=== PATIENT | female | born 1990 | race Caucasian/White ===

== ENCOUNTER 2016-07-21 20:42 | Emergency (ER) | payer OTHER ==
[2016-07-21 20:48] VITALS: BP 140/84; PULSE 85; TEMP 98.1; BMI 25.4
--- NOTE | 2016-07-21 20:58 | PDOC ---
History of Present Illness - General History Source: Patient <Chiki Crowell - Last Filed: 07/21/16 20:54> - General History Source: Patient Exam Limitations: No Limitations - History of Present Illness Initial Comments: 07/21/16 20:58 The patient is a 26 year old female, with no significant past medical history, who presents to the emergency department with left foot pain. She states that a 20 pound weight fell on her foot earlier today while at the gym. She notes that she was able to ambulate immediately afterwards and applied ice to the area for roughly 4 hours. She states that after the icing, she attempted to ambulate and her pain had exacerbated, but has been ambulating since. She reports that the pain is moderate in severity, with radiation to her ankle. She notes that walking exacerbates the pain but is able to ambulate on the foot. Allergies: None Past surgical history: None reported Social history: No alcohol, tobacco or drug use reported <Anshul Tavares - Last Filed: 07/21/16 20:59> - General Chief Complaint: Injury Stated Complaint: LT FOOT PAIN Past History - Past Medical History Other medical history: DENIES - Psycho/Social/Smoking Cessation Hx Anxiety: No Suicidal Ideation: No Smoking History: Never smoked <Chiki Crowell - Last Filed: 07/21/16 20:54> <Anshul Tavares - Last Filed: 07/21/16 20:59> - Past Medical History Allergies/Adverse Reactions: Allergies Allergy/AdvReac Type Severity Reaction Status Date / Time No Known Allergies Allergy Unverified 07/21/16 20:46 Home Medications: Ambulatory Orders NK [No Known Home Medication] 07/21/16 Review of Systems - Review of Systems Able to Perform ROS?: Yes Is the patient limited Persian proficient: No Constitutional: No: Symptoms Reported Musculoskeletal: Yes: Symptoms Reported, See HPI Integumentary: Yes: Symptoms Reported, See HPI Neurological: No: Symptoms reported All Other Systems: Reviewed and Negative <KeciabetyErniegermanChiki - Last Filed: 07/21/16 20:54> - Review of Systems Able to Perform ROS?: Yes <Anshul Tavares - Last Filed: 07/21/16 20:59> *Physical Exam - Vital Signs Last Vital Signs Temp Pulse Resp BP Pulse Ox 98.1 F 85 18 140/84 100 07/21/16 20:46 07/21/16 20:46 07/21/16 20:46 07/21/16 20:46 07/21/16 20:46 - Physical Exam General Appearance: Yes: Nourished, Appropriately Dressed. No: Apparent Distress HEENT: positive: EOMI Neck: positive: Supple Respiratory/Chest: negative: Respiratory Distress Extremity: positive: Normal Capillary Refill, Normal Inspection, Normal Range of Motion. negative: Tender Integumentary: positive: Normal Color, Bruising (LT FOOT) <Chiki Crowell - Last Filed: 07/21/16 20:54> - Vital Signs Last Vital Signs Temp Pulse Resp BP Pulse Ox 98.1 F 85 18 140/84 100 07/21/16 20:46 07/21/16 20:46 07/21/16 20:46 07/21/16 20:46 07/21/16 20:46 <Anshul Tavares - Last Filed: 07/21/16 20:59> Progress Note - Progress Note Progress Note: NO BONY TENDERNESS. FROM NO NEED FOR XRAYS AT THIS POINT <Chiki Crowell - Last Filed: 07/21/16 20:54> *DC/Admit/Observation/Transfer <Chiki Crowell - Last Filed: 07/21/16 20:54> - Attestations Scribe Attestion: 07/21/16 20:58 Documentation prepared by Anshul Tavares, acting as medical billing clerk for Chiki Crowell MD. <Anshul Tavares - Last Filed: 07/21/16 20:59> Diagnosis at time of Disposition: Foot injury Qualifiers: Encounter type: initial encounter Laterality: left Qualified Code(s): S99.922A - Unspecified injury of left foot, initial encounter - Discharge Dispostion Disposition: HOME Condition at time of disposition: Stable - Patient Instructions Additional Instructions: LEG ELEVATION, ICE. NOT WEIGHT BEARING FOR 12 HOURS RANGE OF MOTION INSTRUCTED IBUPROFEN 400 MG 4 TIMES A DAY FOR 3 DAYS RETURN FOR SEVERE PAIN, SWELLING FOLLOW UP WITH YOUR DOCTOR
== END 2016-07-21 21:02 | disposition home or self-care (01) ==
LOC: FER 20:42
DX: S99.922A Unspecified injury of left foot, initial encounter (principal); W20.8XXA Other cause of strike by thrown, projected or falling object, initial encounter; Y93.89 Activity, other specified; Y92.39 Other specified sports and athletic area as the place of occurrence of the external cause
CPT/HCPCS: 99282-25

== ENCOUNTER 2019-06-30 05:17 | Inpatient (IN) | payer OTHER ==
[2019-06-30] MEDS ORDERED: BUTORPHANOL TARTRATE 1 MG/ML VIAL IVPB ONE (06:34)
[2019-06-30] MEDS ORDERED: PROMETHAZINE HCL 25 MG/1 ML VIAL IVPUSH ONE (06:34)
--- NOTE | 2019-06-30 06:34 | HP ---
Past Medical History - Primary Care Physician PCP:: Pennie Campbell - Admission Chief Complaint: Labor History of Present Illness: 29 yo G 2 P1 EDC EGA 38.5 wk c/o active labor History Source: Patient Limitations to Obtaining History: No Limitations - Past Medical History ...: 3 ...Para: 1 ...Term: 1 ...: 0 ...Spon : 0 ...Induced : 1 ...LMP: 10/06/18 ... Weeks Gestation by Dates: 38.1 ...EDC by Dates: 07/13/19 ...EDC by Sono: 07/09/19 - Past Surgical History Past Surgical History: Yes: None Hx Myomectomy: No Hx Transabdominal Cerclage: No - Smoking History Smoking history: Never smoked - Alcohol/Substance Use Hx Alcohol Use: No History of Substance Use: reports: None - Social History Usual Living Arrangement: Yes: With Spouse History of Recent Travel: Yes Home Medications - Allergies Allergies/Adverse Reactions: Allergies Allergy/AdvReac Type Severity Reaction Status Date / Time No Known Allergies Allergy Verified 06/30/19 06:13 - Home Medications Home Medications: Ambulatory Orders Ibuprofen [Motrin -] 600 mg PO QID #28 tablet 06/30/19 Pnv No.95/Ferrous Fum/Folic AC [ Vitamin Tablet] 1 tab PO DAILY Review of Systems - Review of Systems Constitutional: reports: No Symptoms Eyes: reports: No Symptoms HENT: reports: No Symptoms Neck: reports: No Symptoms Cardiovascular: reports: No Symptoms Respiratory: reports: No Symptoms Gastrointestinal: reports: No Symptoms Genitourinary: reports: No Symptoms Breasts: reports: No Symptoms Reported Musculoskeletal: reports: No Symptoms Integumentary: reports: No Symptoms Neurological: reports: No Symptoms Endocrine: reports: No Symptoms Hematology/Lymphatic: reports: No Symptoms Psychiatric: reports: No Symptoms Physical Exam - Maternity Constitutional: Yes: Well Nourished, No Distress Neck: Yes: WNL - Abdominal Exam/OB Fundal Height: 38 Number of Fetuses: Single Presentation: Vertex Contractions: Yes Monitor Mode: External Category: I - Vaginal Exam/OB Vaginal Bleediing: No Presentation: Vertex/Position - Physical Exam Musculoskeletal: Yes: WNL Extremities: Yes: WNL Hemorrhage Risk Assessment - Risk Factors Risk Score: 0 Risk Level: Low Risk Problem List - Problems (1) Labor established Problems reviewed: Yes Code(s): EGR5360 - Assessment/Plan Labor established ALpha Thalsemia carrier' FOB neg IUp at 38.5 weeks Plan Admit anitcipate vaginal delivery
[2019-06-30] MEDS ORDERED: AMPICILLIN - 2 GM in SODIUM CHLORIDE 100 ML IVPB ONE (06:42)
[2019-06-30] MEDS ORDERED: ELECTROLYTE-148 SOLN 1,000 ML IV SCH (06:45)
[2019-06-30] MEDS ORDERED: AMPICILLIN SODIUM 2 GM VIAL ONE (06:48)
[2019-06-30 06:59] VITALS: BMI 26.5
[2019-06-30 07:10] LABS: BASO % 0.4 % (0-2.0); EOS % 0.7 % (0-4.5); HEMATOCRIT 33.2 % (32.4-45.2); HEMOGLOBIN 11.3 GM/dL (10.7-15.3); MCH 25.6 pg (25.7-33.7); MEAN CELL VOLUME 75.3 fl (80-96); MONO % 6.9 % (3.8-10.2); PLATELET COUNT 229 K/MM3 (134-434); RDW 15.2 % (11.6-15.6); WHITE BLOOD COUNT 9.5 K/mm3 (4.0-10.0)
[2019-06-30] MEDS ORDERED: BUTORPHANOL TARTRATE 1 MG/ML VIAL ONE ×2 (07:29)
[2019-06-30] MEDS ORDERED: LIDOCAINE HCL 1% PRESERVATIVE FREE - 30ML VIAL ONE (07:30)
[2019-06-30] MEDS ORDERED: OXYTOCIN 20 UNITS in 0.9% NS 20 UNIT/1,000 ML INFUS.BAG IV ONE (07:30)
[2019-06-30] MEDS ORDERED: PROMETHAZINE HCL 25 MG/1 ML VIAL ONE (07:30)
[2019-06-30 07:38] LABS: BLOOD UREA NITROGEN 7.3 mg/dL (7-18); CALCIUM 8.4 mg/dL (8.5-10.1); CREATININE 0.4 mg/dL (0.55-1.3); POTASSIUM 3.5 mmol/L (3.5-5.1)
--- NOTE | 2019-06-30 07:40 | PN ---
Ante-Partal Exam - Subjective Subjective: Pt with co abd pain desires IV meds Vital Signs: Vital Signs Temperature 98.3 F 06/30/19 07:00 Pulse Rate 83 06/30/19 07:00 Respiratory Rate 20 06/30/19 07:00 Blood Pressure 119/67 06/30/19 07:00 O2 Sat by Pulse Oximetry (%) Bleeding: No Headache: No Visual changes: No Right upper quadrant pain: No - Contractions Contractions: Yes Regularity: Regular Intensity: Moderate Monitor Mode: External - Exam during Labor Variability: Moderate Heart Rate Location: [facility] Category: I Monitor Accelerations: Present Monitor Decelerations: None Exam: Vaginal Dilatation (cm): 8 Effacement (%): 100 Amniotic Membrane Status: Intact Presentation: Vertex Station: +1 - Intrapartum Hemorrhage Risk Risk Score: 0 Risk Level: Low Risk - Assessment/Plan Assessment/Plan: Active Labor 38.5 week Cat 1 GBS unknown Plan GBS protocol IV Stadol anticipate vaginal delivery
[2019-06-30 07:41] LABS: INR 0.9 (0.83-1.09); PROTHROMBIN TIME (PATIENT) 10.6 SEC (9.7-13.0)
[2019-06-30 07:44] LABS: ACTIVATED PTT 27.3 SECONDS (25.2-36.5)
[2019-06-30] MEDS: ACETAMINOPHEN 325 MG TABLET (FP) PO PRN ×4 (09:00→20:35)
[2019-06-30] MEDS: IBUPROFEN 600 MG TABLET (FP) PO PRN ×3 (10:00→20:34)
[2019-06-30] MEDS ORDERED: ACETAMINOPHEN 325 MG TABLET (FP) ONE (10:03)
[2019-06-30] MEDS ORDERED: IBUPROFEN 600 MG TABLET (FP) PO ONE (10:03)
[2019-06-30] MEDS ORDERED: BISACODYL 10 MG SUPP.RECT RC PRN (10:09)
[2019-06-30] MEDS ORDERED: WITCH HAZEL 50% (TUCKS) 40 PAD/JAR PAD TP PRN (10:09)
[2019-06-30] MEDS ORDERED: BENZOCAINE 20% 57 GM BOTTLE TP PRN (10:09)
[2019-06-30] MEDS ORDERED: BENZOCAINE 28 GM HEMORRHOIDAL OINTMENT PR PRN (10:09)
[2019-06-30] MEDS ORDERED: METHYLERGONOVINE MALEATE 0.2 MG/1 ML AMP IM PRN (10:09)
--- NOTE | 2019-06-30 10:11 | PN ---
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
[2019-06-30] MEDS ORDERED: AMPICILLIN - 1 GM in SODIUM CHLORIDE 100 ML IVPB SCH (10:43)
[2019-06-30] MEDS ORDERED: OXYTOCIN 20 UNITS in 0.9% NS 20 UNIT/1,000 ML INFUS.BAG IV SCH (12:00)
[2019-07-01] MEDS: ACETAMINOPHEN 325 MG TABLET (FP) PO PRN ×3 (02:21→21:12)
[2019-07-01] MEDS: IBUPROFEN 600 MG TABLET (FP) PO PRN ×3 (02:21→21:12)
[2019-07-01 06:06] LABS: RUBELLA ANTIBODY,IGM <20.0 AU/mL (0.0-19.9)
[2019-07-01 08:40] LABS: BASO % 0.6 % (0-2.0); EOS % 0.4 % (0-4.5); HEMATOCRIT 28.9 % (32.4-45.2); HEMOGLOBIN 9.6 GM/dL (10.7-15.3); LYMPH % 31.9 % (8-40); MCH 25.6 pg (25.7-33.7); MCHC 33.2 g/dl (32.0-36.0); MEAN CELL VOLUME 76.9 fl (80-96); MONO % 7.3 % (3.8-10.2); NEUT % 59.8 % (42.8-82.8); PLATELET COUNT 220 K/MM3 (134-434); RBC 3.76 M/mm3 (3.60-5.2); RDW 15.1 % (11.6-15.6); WHITE BLOOD COUNT 11.5 K/mm3 (4.0-10.0)
[2019-07-01 20:32] LABS: BASO % 0.5 % (0-2.0); EOS % 0.7 % (0-4.5); HEMATOCRIT 29.5 % (32.4-45.2); HEMOGLOBIN 9.6 GM/dL (10.7-15.3); LYMPH % 37.3 % (8-40); MCH 25.5 pg (25.7-33.7); MCHC 32.6 g/dl (32.0-36.0); MEAN CELL VOLUME 78.1 fl (80-96); MEAN PLT VOLUME 9.7 fl (7.5-11.1); MONO % 5.6 % (3.8-10.2); NEUT % 55.9 % (42.8-82.8); PLATELET COUNT 233 K/MM3 (134-434); RBC 3.78 M/mm3 (3.60-5.2); RDW 15.6 % (11.6-15.6); WHITE BLOOD COUNT 9.3 K/mm3 (4.0-10.0)
--- NOTE | 2019-07-01 23:22 | PN ---
Post Note - Post Date of Delivery: 06/30/19 Post Day: 1 Vital Signs: Vital Signs - 24 hr 07/01/19 07/01/19 07/01/19 05:00 08:31 22:00 Temperature 97.9 F 97.7 F 98.2 F Pulse Rate 75 76 81 Respiratory 20 18 20 Rate Blood Pressure 115/66 111/71 116/72 Labs: Laboratory Results - last 24 hr 06/30/19 07/01/19 07/01/19 06:45 07:58 19:30 WBC 11.5 H 9.3 RBC 3.76 3.78 Hgb 9.6 L 9.6 L Hct 28.9 L 29.5 L MCV 76.9 L 78.1 L MCH 25.6 L 25.5 L MCHC 33.2 32.6 RDW 15.1 15.6 Plt Count 220 233 MPV 9.0 9.7 Absolute Neuts (auto) 6.9 5.2 Neutrophils % 59.8 55.9 Lymphocytes % 31.9 37.3 Monocytes % 7.3 5.6 Eosinophils % 0.4 0.7 Basophils % 0.6 0.5 Nucleated RBC % 0 0 Hep Bs Antigen Negative Rubella IgM Antibody <20.0 - Subjective Subjective: No Complaints - Objective Afebrile: Yes Breast: Not engorged Abdomen: Soft, Non-tender Uterus: Fundus firm Vagina: Scant lochia Extremities: Non-tender - Assessment/Plan (1) Labor established Assessment: S/P Normal , Other (anemia) Plan: Routine Care
--- NOTE | 2019-07-02 06:56 | DS ---
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 Vital Signs: Vital Signs Temperature 98.2 F 07/01/19 22:00 Pulse Rate 81 07/01/19 22:00 Respiratory Rate 20 07/01/19 22:00 Blood Pressure 116/72 07/01/19 22:00 O2 Sat by Pulse Oximetry (%) 99 06/30/19 10:30 Constitutional: Yes: Well Nourished, No Distress Gastrointestinal: Yes: WNL, Soft ....Post : Yes: Uterus firm, Uterus non-tender Breast(s): Yes: WNL Musculoskeletal: Yes: WNL Extremities: Yes: WNL Labs: CBC, BMP 07/01/19 19:30 06/30/19 06:45 Delivery - Delivery Vaginal Delivery: No Problems Type of Anesthesia: Local Episiotomy/Laceration: Right Mediolateral EBL (cc): 500 (pt with hemorraghe methergine given) Delivery, Single - Stages of Labor Date 1st Stage Initiatied: 06/30/19 Time 1st Stage Initiated: 03:30 Date 2nd Stage Initiated: 06/30/19 Time 2nd Stage Initiated: 09:00 Date of Delivery: 06/30/19 Time of Delivery: 09:17 Time Placenta Delivered: 09:20 Placenta: Yes: Spontaneous - Condition of 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 Infant Gender: Female Weight: 6 lb 11 oz Position: OA Total Hours ROM (Hrs/Mins): 10min - 1 Minute Total Score: 9 5 Minutes Total Score: 9 - [place] Feeding Plan Initial Plan: Elected not to breastfeed exclusively throughout hospitalization Discharge Summary Problems reviewed: Yes Reason For Visit: LABOR Current Active Problems Labor established (Acute) Procedures: Principal: Normal vaginal delivery Hospital Course: Unremarkable Condition: Good - Instructions Diet, Activity, Other Instructions: Physical activity Resume your normal everyday activity as tolerated no heavy lifting or exercise until seen by your surgeon. You may walk unlimited rachele of and climb stairs. You may resume driving the car when you feel safe and comfortable behind the wheel. No sexual activity as instructed. Wound care If you have a bandage, leave it on, and keep dry for 48-72 hours. After that time discard the outer bandage. If they are tapes on the skin under the out of bandage leave them in place. They will peel off in the next 7 to 10 days. Do Not Peel them off. You may shower the day after surgery. If there are tapes present on the skin, you may shower over them. Diet There are no dietary restrictions. Eat healthy, high-fiber foods. Drink 6 to 8 glasses of liquid each day. This will assist in keeping your bowels are regular. Pain management You may take Tylenol or acetaminophen or Ibuprofen (for example, Motrin, Advil etc.) from my pain prescription medication is ordered should be taken as prescribed for moderate to severe pain. Call MD for any of the following: Severe pain not relieved by medication Fever of 101 or higher Excessive bleeding or drainage on dressing Inability to urinate Referrals: Pennie Campbell MD [Staff Physician] - Disposition: HOME - Home Medications Comprehensive Discharge Medication List: Ambulatory Orders Ibuprofen [Motrin -] 600 mg PO QID #28 tablet 06/30/19 Pnv No.95/Ferrous Fum/Folic AC [ Vitamin Tablet] 1 tab PO DAILY
[2019-07-02] MEDS: IBUPROFEN 600 MG TABLET (FP) PO PRN (09:01)
[2019-07-02] MEDS: ACETAMINOPHEN 325 MG TABLET (FP) PO PRN (09:01)
[2019-07-02 09:07] VITALS: BP 112/74; PULSE 80; TEMP 98.5
== END 2019-07-02 15:55 | disposition home or self-care (01) | DRG 560 ==
LOC: JDEL 05:17 → JLDR 06:30 → J3W 12:01
PROVIDERS: ADMIT Obstetrics & Gynecology; ATTEND Obstetrics & Gynecology
PROC: 10E0XZZ Delivery of Products of Conception, External Approach (ICD-10-PCS; principal; 2019-06-30)
PROC: 0W8NXZZ Division of Female Perineum, External Approach (ICD-10-PCS; 2019-06-30)
DX: O99.02 Anemia complicating childbirth (principal); O72.1 Other immediate postpartum hemorrhage; Z3A.38 38 weeks gestation of pregnancy; Z37.0 Single live birth
CPT/HCPCS: 36415; 36600; 59025; 59409; 80048; 82803; 85025; 85610; 85730; 86593; 86762; 86850; 86900; 86901; 87340

== ENCOUNTER 2019-07-22 20:30 | Emergency (ER) | payer OTHER ==
[2019-07-22 20:40] VITALS: BP 119/78; PULSE 82; TEMP 98.1; BMI 24.2
[2019-07-22] MEDS ORDERED: AMOXICILLIN 250 MG CAPSULE PO ONE (21:12)
[2019-07-22] MEDS ORDERED: AMOXICILLIN 250 MG CAPSULE ONE (21:19)
--- NOTE | 2019-07-22 23:04 | PDOC ---
Documentation entered by Florecita Brunson SCRIBE, acting as scribe for Nkechi Goodwin MD. Nkechi Goodwin MD: This documentation has been prepared by the Boy kirk Brenda, SCRIBE, under my direction and personally reviewed by me in its entirety. I confirm that the documentation accurately reflects all work, treatment, procedures, and medical decision making performed by me. History of Present Illness - General Chief Complaint: Pain Stated Complaint: PAIN FROM EPISIOTOMY SUTURES Time Seen by Provider: 07/22/19 20:33 History Source: Patient Exam Limitations: No Limitations - History of Present Illness Initial Comments: 07/22/19 21:10 The patient is a 29 year old female (A0), with no significant PMH who presents to the emergency department with pain in vaginal area. As per patient underwent a natural 3 weeks ago, followed by an episiotomy. Patient states that she feels burning in her vaginal area which is constant but mostly aggravated by urinating and sitting. She prashanth endorses being constipated. LBM was 2 days ago. Patient states experiencing constipation, only during pregnancies. The patient denies chest pain, shortness of breath, headache and dizziness. Denies fever, chills, nausea, vomiting and diarrhea. Denies any pain related to bladder,frequency, urgency and hematuria. Allergies: NKA Past surgical history: Episiotomy post natural Social history: No reported drug use. Past History - Past Medical History Allergies/Adverse Reactions: Allergies Allergy/AdvReac Type Severity Reaction Status Date / Time No Known Allergies Allergy Verified 07/22/19 20:32 Home Medications: Ambulatory Orders Ibuprofen [Motrin -] 600 mg PO QID #28 tablet 06/30/19 Pnv No.95/Ferrous Fum/Folic AC [ Vitamin Tablet] 1 tab PO DAILY Amoxicillin - [Amoxicillin 250mg Capsule -] 250 mg PO TID #21 capsule 07/22/19 Asthma: No Cancer: No Cardiac Disorders: No COPD: No Diabetes: No HTN: No Seizures: No Thyroid Disease: No - Psycho Social/Smoking Cessation Hx Smoking History: Never smoked Have you smoked in the past 12 months: No Information on smoking cessation initiated: No Hx Alcohol Use: No Drug/Substance Use Hx: No Hx Substance Use Treatment: No Review of Systems - Review of Systems Able to Perform ROS?: Yes Comments:: 07/22/19 21:11 GENERAL/CONSTITUTIONAL: (+) Vaginal pain. No fever or chills. No weakness. HEAD, EYES, EARS, NOSE AND THROAT: No change in vision. No ear pain or discharge. No sore throat. CARDIOVASCULAR: No chest pain or shortness of breath. RESPIRATORY: No cough, wheezing, or hemoptysis. GASTROINTESTINAL: No nausea, vomiting, diarrhea or constipation. GENITOURINARY: No frequency, or change in urination. MUSCULOSKELETAL: No joint or muscle swelling or pain. No neck or back pain. SKIN: No rash NEUROLOGIC: No headache, vertigo, loss of consciousness, or change in strength/ sensation. ENDOCRINE: No increased thirst. No abnormal weight change. HEMATOLOGIC/LYMPHATIC: No anemia, easy bleeding, or history of blood clots. ALLERGIC/IMMUNOLOGIC: No hives or skin allergy. *Physical Exam - Vital Signs Last Vital Signs Temp Pulse Resp BP Pulse Ox 98.1 F 82 16 119/78 100 07/22/19 20:35 07/22/19 20:35 07/22/19 20:35 07/22/19 20:35 07/22/19 20:35 - Physical Exam 07/22/19 21:12 GENERAL: Awake, alert, and fully oriented, in no acute distress HEAD: No signs of trauma EYES: PERRLA, EOMI, sclera anicteric, conjunctiva clear ENT: Auricles normal inspection, hearing grossly normal, nares patent, oropharynx clear without exudates. Moist mucosa NECK: Normal ROM, supple, no lymphadenopathy, JVD, or masses LUNGS: Breath sounds equal, clear to auscultation bilaterally. No wheezes, and no crackles HEART: Regular rate and rhythm, normal S1 and S2, no murmurs, rubs or gallops ABDOMEN: Soft, nontender, normoactive bowel sounds. No guarding, no rebound. No masses EXTREMITIES: Normal range of motion, no edema. No clubbing or cyanosis. No cords, erythema, or tenderness NEUROLOGICAL: Cranial nerves II through XII grossly intact. Normal speech, normal gait SKIN: Warm, Dry, normal turgor, no rashes or lesions noted. Medical Decision Making - Medical Decision Making As noted above, this 29-year-old woman, 3 weeks s/p vaginal delivery with subsequent episiotomy presents with increasing discomfort at the episiotomy site. Exam as noted. Patient is currently breast-feeding External pelvic exam performed: Left introitus slightly more swollen and erythematous as compared to the right side. No fluctuance or discharge noted. No evidence of abnormality regarding suture. Left internal labia moderately tender as compared to the right side. Clinical presentation most consistent with localized inflammation/tenderness of the left labia minora after episiotomy. No evidence of abscess or discharge. Patient should soak area in warm sitz bath (patient asked if she could put Epson salts in water which would be acceptable). Also, patient will be started on amoxicillin 250 mg 3 times a day. She should contact her land commissioner tomorrow morning and arrange for follow-up within the next few days (patient was originally scheduled to be seen by the land commissioner in follow-up next week). The patient should return to the ER if she has increasing pain/swelling in the area of the episiotomy or if she notices discharge from the area. Also, the patient has any fever/chills Discharge - Discharge Information Problems reviewed: Yes Clinical Impression/Diagnosis: Episiotomy pain Condition: Stable Disposition: HOME - Additional Discharge Information Prescriptions: Amoxicillin - [Amoxicillin 250mg Capsule -] 250 mg PO TID #21 capsule - Follow up/Referral - Patient Discharge Instructions Patient Printed Discharge Instructions: Episiotomy Additional Instructions: Shallow, warm baths at least 2-3 times a day Can use Epson salts in bath water Amoxicillin 250 mg 3 times a day Call your land commissioner in the morning and follow-up within 1 to 2 days Continue to drink plenty of water and eat high-fiber foods for constipation MiraLAX daily if you have persisting constipation Return to ER if you have increased pain, fever/chills or swelling in episiotomy area - Post Discharge Activity
== END 2019-07-22 21:32 | disposition home or self-care (01) ==
LOC: FER 20:30
DX: G89.18 Other acute postprocedural pain (principal)
CPT/HCPCS: 99281-25

== ENCOUNTER 2022-05-05 22:22 | Emergency (ER) | payer OTHER ==
[2022-05-05 22:40] VITALS: BP 113/71; PULSE 54; RESP 16; TEMP 99; BMI 27.5
== END 2022-05-06 01:05 | disposition home or self-care (01) ==
LOC: FER 22:22
DX: O20.8 Other hemorrhage in early pregnancy (principal); Z3A.08 8 weeks gestation of pregnancy
CPT/HCPCS: 76801-TC; 99284-25

== ENCOUNTER 2022-11-29 00:17 | Inpatient (IN) | payer OTHER ==
[2022-11-29] MEDS ORDERED: BUTORPHANOL TARTRATE 1 MG/ML VIAL IVPB PRN (02:23)
[2022-11-29] MEDS ORDERED: PROMETHAZINE HCL 25 MG/1 ML VIAL IVPB ONE (02:23)
[2022-11-29 02:24] LABS: BASO % 0.4 % (0-2.0); EOS % 0.9 % (0-4.5); HEMATOCRIT 33.3 % (32.4-45.2); HEMOGLOBIN 11.1 GM/dL (10.7-15.3); LYMPH % 29.9 % (8-40); MCH 24.9 pg (25.7-33.7); MCHC 33.4 g/dl (32.0-36.0); MEAN CELL VOLUME 74.5 fl (80-96); MEAN PLT VOLUME 9.5 fl (7.5-11.1); MONO % 8.9 % (3.8-10.2); NEUT % 59.9 % (42.8-82.8); PLATELET COUNT 269 10^3/uL (134-434); RBC 4.47 M/mm3 (3.60-5.2); RDW 15.4 % (11.6-15.6); WHITE BLOOD COUNT 9.9 K/mm3 (4.0-10.0)
[2022-11-29] MEDS ORDERED: ELECTROLYTE-148 SOLN 1,000 ML IV SCH (02:30)
[2022-11-29] MEDS ORDERED: BUTORPHANOL TARTRATE 2 MG/ML VIAL ONE (02:31)
[2022-11-29 02:39] LABS: INR 0.96 (0.83-1.09); PROTHROMBIN TIME (PATIENT) 11.1 SEC (9.7-13.0)
[2022-11-29 02:42] LABS: ACTIVATED PTT 27.5 SECONDS (25.2-36.5)
[2022-11-29 02:50] LABS: POTASSIUM 3.4 mmol/L (3.5-5.1)
[2022-11-29 02:52] LABS: BLOOD UREA NITROGEN 7.1 mg/dL (7-18); CALCIUM 8.4 mg/dL (8.5-10.1)
[2022-11-29 02:56] LABS: CREATININE 0.4 mg/dL (0.55-1.3)
[2022-11-29 03:01] VITALS: BMI 26.4
[2022-11-29] MEDS ORDERED: LIDOCAINE HCL 1% PRESERVATIVE FREE - 30ML VIAL ONE (04:30)
[2022-11-29] MEDS ORDERED: OXYTOCIN 20 UNITS in 0.9% NS 20 UNIT/1,000 ML INFUS.BAG IV ONE (04:30)
[2022-11-29] MEDS ORDERED: BENZOCAINE 20% 57 GM BOTTLE TP PRN (04:35)
[2022-11-29] MEDS ORDERED: ACETAMINOPHEN 325 MG TABLET (FP) PO PRN (04:35)
[2022-11-29] MEDS ORDERED: oxyCODONE HCL 5 MG TABLET PO PRN (04:35)
[2022-11-29] MEDS ORDERED: BENZOCAINE 28 GM HEMORRHOIDAL OINTMENT TP PRN (04:35)
[2022-11-29] MEDS ORDERED: METHYLERGONOVINE MALEATE 0.2 MG/1 ML AMP IM PRN (04:35)
[2022-11-29] MEDS ORDERED: WITCH HAZEL 50% (TUCKS) 40 PAD/JAR PAD TP PRN (04:35)
[2022-11-29] MEDS ORDERED: BISACODYL 10 MG SUPP.RECT RC PRN (04:35)
[2022-11-29] MEDS ORDERED: OXYTOCIN 30 UNITS in 0.9% NS 30 UNIT/500 ML INFUS.BAG IVPB SCH (04:45)
[2022-11-29] MEDS ORDERED: OXYTOCIN 20 UNITS in 0.9% NS 20 UNIT/1,000 ML INFUS.BAG IV SCH (04:45)
[2022-11-29] MEDS ORDERED: IBUPROFEN 600 MG TABLET (FP) PO ONE (05:14)
[2022-11-29] MEDS: IBUPROFEN 600 MG TABLET (FP) PO PRN ×2 (05:15→23:55)
[2022-11-29 05:55] LABS: CORD BASE EXCESS -3.4 mmol/L (0-2); CORD pH 7.317 (7.14-7.44)
[2022-11-29] MEDS ORDERED: ACETAMINOPHEN 325 MG TABLET (FP) ONE (07:28)
[2022-11-29] MEDS: PRENATAL VITAMINS W/ FOLIC ACID TABLET (FP) PO SCH (09:35)
[2022-11-29] MEDS: FERROUS SO4 325 MG TABLET (FP) PO SCH ×3 (09:35→17:16)
[2022-11-29 14:17] LABS: POC NITRAZINE NEG
[2022-11-30 06:54] LABS: BASO % 0.3 % (0-2.0); EOS % 0.8 % (0-4.5); HEMOGLOBIN 9.5 GM/dL (10.7-15.3); LYMPH % 34.9 % (8-40); MCH 25.9 pg (25.7-33.7); MEAN PLT VOLUME 9.5 fl (7.5-11.1); MONO % 7.6 % (3.8-10.2); NEUT % 56.4 % (42.8-82.8); PLATELET COUNT 220 10^3/uL (134-434); RBC 3.65 M/mm3 (3.60-5.2); RDW 15.5 % (11.6-15.6); WHITE BLOOD COUNT 9.4 K/mm3 (4.0-10.0)
[2022-11-30] MEDS: FERROUS SO4 325 MG TABLET (FP) PO SCH ×3 (07:58→18:07)
[2022-11-30] MEDS: IBUPROFEN 600 MG TABLET (FP) PO PRN ×2 (07:58→19:41)
[2022-11-30] MEDS: PRENATAL VITAMINS W/ FOLIC ACID TABLET (FP) PO SCH (10:33)
[2022-11-30 14:23] VITALS: RESP 17
[2022-11-30] MEDS ORDERED: SENNOSIDES/DOCUSATE COMBO (SENNA PLUS) TABLET (UD) PO PRN (22:00)
[2022-12-01] MEDS: IBUPROFEN 600 MG TABLET (FP) PO PRN (06:18)
[2022-12-01 08:12] VITALS: BP 118/63; PULSE 74; TEMP 98
[2022-12-01] MEDS: FERROUS SO4 325 MG TABLET (FP) PO SCH ×2 (08:54→12:08)
[2022-12-01] MEDS: PRENATAL VITAMINS W/ FOLIC ACID TABLET (FP) PO SCH (09:45)
== END 2022-12-01 12:49 | disposition home or self-care (01) | DRG 560 ==
LOC: JDEL 00:17 → JLDR 01:20 → J3W 08:00
PROVIDERS: ADMIT Obstetrics & Gynecology; ATTEND Obstetrics & Gynecology
PROC: 10E0XZZ Delivery of Products of Conception, External Approach (ICD-10-PCS; principal; 2022-11-29)
DX: O80 Encounter for full-term uncomplicated delivery (principal); Z3A.38 38 weeks gestation of pregnancy; Z37.0 Single live birth
CPT/HCPCS: 36415; 36600; 59025; 80048; 82803; 83986-QW; 85025; 85610; 85730; 86780; 86850; 86900; 86901; C9803-CS; U0003; U0005

== ENCOUNTER 2023-01-04 03:37 | Emergency (ER) | payer OTHER ==
[2023-01-04 03:50] VITALS: BP 141/68; PULSE 72; RESP 18; TEMP 99.4; BMI 26.4
[2023-01-04] MEDS ORDERED: MAG HYDROX/AL HYDROX/SIMETH -MYLANTA- ORAL SUSPENSION PO ONE (03:50)
[2023-01-04] MEDS ORDERED: MAG HYDROX/AL HYDROX/SIMETH 30 ML UNIT-DOSE CUP ONE (03:50)
[2023-01-04] MEDS ORDERED: FAMOTIDINE 20 MG TABLET PO ONE (04:06)
[2023-01-04] MEDS ORDERED: FAMOTIDINE 20 MG TABLET ONE (04:14)
== END 2023-01-04 04:49 | disposition home or self-care (01) ==
LOC: FER 03:37
DX: R10.13 Epigastric pain (principal); R11.0 Nausea; M54.6 Pain in thoracic spine; K29.70 Gastritis, unspecified, without bleeding
CPT/HCPCS: 99283-25

== ENCOUNTER 2023-01-05 20:11 | Emergency (ER) | payer OTHER ==
[2023-01-05 20:25] VITALS: RESP 18; TEMP 98.7; BMI 26.2
[2023-01-05] MEDS ORDERED: ONDANSETRON 4 MG/2 ML VIAL IVPUSH ONE (21:00)
[2023-01-05] MEDS ORDERED: MAG HYDROX/AL HYDROX/SIMETH 30 ML UNIT-DOSE CUP PO ONE (21:00)
[2023-01-05] MEDS ORDERED: ACETAMINOPHEN 1000 MG/100 ML BAG IVPB ONE (21:00)
[2023-01-05] MEDS ORDERED: FAMOTIDINE 20 MG/50 ML IVPB 20 MG/50 ML MG IVPB ONE ×2 (21:00→21:38)
[2023-01-05] MEDS ORDERED: SODIUM CHLORIDE 0.9% 500 ML INFUS.BAG IV ONE (21:01)
[2023-01-05 21:28] LABS: BASO % 0.5 % (0-2.0); HEMATOCRIT 38.6 % (32.4-45.2); HEMOGLOBIN 12.4 GM/dL (10.7-15.3); LYMPH % 20.1 % (8-40); MCHC 32.1 g/dl (32.0-36.0); MEAN CELL VOLUME 74.8 fl (80-96); MEAN PLT VOLUME 8.3 fl (7.5-11.1); MONO % 7.6 % (3.8-10.2); NEUT % 70.8 % (42.8-82.8); PLATELET COUNT 271 10^3/uL (134-434); RBC 5.16 M/mm3 (3.60-5.2); RDW 18.3 % (11.6-15.6); WHITE BLOOD COUNT 11.4 K/mm3 (4.0-10.0)
[2023-01-05] MEDS ORDERED: ACETAMINOPHEN INJECTION 100 ML IVPB ONE (21:37)
[2023-01-05 21:38] LABS: POTASSIUM 4.2 mmol/L (3.5-5.1)
[2023-01-05] MEDS ORDERED: ONDANSETRON 4 MG/2 ML VIAL ONE (21:38)
[2023-01-05 21:40] LABS: CALCIUM 9.6 mg/dL (8.5-10.1)
[2023-01-05 21:41] LABS: ALBUMIN 4.3 g/dl (3.4-5.0)
[2023-01-05 21:44] LABS: CREATININE 0.7 mg/dL (0.55-1.3)
[2023-01-05 21:45] LABS: BILIRUBIN,TOTAL 1.2 mg/dL (0.2-1); TOT PROT 8.1 g/dl (6.4-8.2)
[2023-01-05] MEDS ORDERED: MAG HYDROX/AL HYDROX/SIMETH 30 ML UNIT-DOSE CUP ONE (21:52)
[2023-01-06 01:46] LABS: EPI CELLS 27 /uL (0-25.1); HYALINE CASTS 0 /uL (0-3.1); PH,URINE 7.5 (5.0-8.0); URINE APPEARANCE CLEAR; URINE BACTERIA 996 /uL (0-1359); URINE BILIRUBIN NEGATIVE (NEGATIVE); URINE COLOR YELLOW; URINE GLUCOSE (UA) NEGATIVE (NEGATIVE); URINE KETONE NEGATIVE (NEGATIVE); URINE LEUK ESTERASE 1+ (NEGATIVE); URINE NITRITE NEGATIVE (NEGATIVE); URINE PROTEIN NEGATIVE (NEGATIVE); URINE RBC 8 /uL (0-23.9); URINE WBC 29 /uL (0-25.8)
[2023-01-06] MEDS ORDERED: morphine CARPU-JECT 4 MG/1 ML DISP.SYRIN IVPUSH ONE (05:19)
[2023-01-06] MEDS ORDERED: ONDANSETRON 4 MG/2 ML VIAL IVPUSH ONE (05:19)
[2023-01-06] MEDS ORDERED: morphine SULFATE 4 MG/ML VIAL ONE (05:25)
[2023-01-06] MEDS ORDERED: ONDANSETRON 4 MG/2 ML VIAL ONE (05:25)
[2023-01-06 08:21] VITALS: BP 98/65; PULSE 54
== END 2023-01-06 08:40 | disposition short-term general hospital (02) ==
LOC: JER 20:11
PROC: 3E033GC Introduction of Other Therapeutic Substance into Peripheral Vein, Percutaneous Approach (ICD-10-PCS; principal; 2023-01-05)
PROC: 3E033NZ Introduction of Analgesics, Hypnotics, Sedatives into Peripheral Vein, Percutaneous Approach (ICD-10-PCS; 2023-01-05)
PROC: 3E033GC Introduction of Other Therapeutic Substance into Peripheral Vein, Percutaneous Approach (ICD-10-PCS; 2023-01-05)
PROC: 3E033GC Introduction of Other Therapeutic Substance into Peripheral Vein, Percutaneous Approach (ICD-10-PCS; 2023-01-05)
PROC: 3E033GC Introduction of Other Therapeutic Substance into Peripheral Vein, Percutaneous Approach (ICD-10-PCS; 2023-01-05)
DX: R10.13 Epigastric pain (principal); R11.0 Nausea; K80.50 Calculus of bile duct without cholangitis or cholecystitis without obstruction; R74.01 Elevation of levels of liver transaminase levels; Z20.822 Contact with and (suspected) exposure to COVID-19
CPT/HCPCS: 36415; 76705-TC; 80053; 81003; 83690; 84703; 85025; 87086; 87635; 93005; 93010; 99285-25

== ENCOUNTER 2023-06-30 16:10 | Emergency (ER) | payer OTHER ==
[2023-06-30 16:27] VITALS: BP 119/71; PULSE 71; RESP 18; TEMP 98.1; BMI 26.2
[2023-06-30] MEDS ORDERED: IBUPROFEN 600 MG TABLET (FP) PO ONE (16:53)
[2023-06-30] MEDS: IBUPROFEN 600 MG TABLET (FP) PO ONE (16:56)
[2023-06-30] MEDS: DIPHTH,PERTUSS(ACELL),TET 0.5 ML DISP.SYRIN IM ONE (16:57)
== END 2023-06-30 17:11 | disposition home or self-care (01) ==
LOC: FER 16:10
PROC: 3E0234Z Introduction of Serum, Toxoid and Vaccine into Muscle, Percutaneous Approach (ICD-10-PCS; principal; 2023-06-30)
DX: T25.021A Burn of unspecified degree of right foot, initial encounter (principal); M79.671 Pain in right foot; X10.2XXA Contact with fats and cooking oils, initial encounter; Y93.G3 Activity, cooking and baking
CPT/HCPCS: 90471; 90715; 99283-25